=== PATIENT | male | born 1965 | race Caucasian/White ===

== ENCOUNTER 2017-02-11 07:54 | Day surgery (SDC) | payer BC ==
[~2017-02-11 07:54] MED LIST: LIDOCAINE HCL 1% MPF SOL ONE; PROPOFOL 500 MG/50 ML EMU IV ONE
[2017-02-11 09:11] VITALS: BP 128/85; PULSE 60; RESP 18; TEMP 97.6; O2SAT 98
== END 2017-02-11 09:25 | disposition home or self-care (01) ==
LOC: SURG 07:54
PROVIDERS: ATTEND Surgery
DX: K62.5 Hemorrhage of anus and rectum (principal); K57.30 Diverticulosis of large intestine without perforation or abscess without bleeding; K62.1 Rectal polyp
CPT/HCPCS: 99001; J2001; J2704